=== PATIENT | female | born 1990 | race Caucasian/White ===

== ENCOUNTER → 2016-11-21 21:00 | Emergency (ER) | payer BC ==
[~2016-11-21 21:00] MED LIST: Albuterol/Ipratropium NEB.SOL* Albuterol 2.5 MG/Ipratropium 0.5 MG 3 ML INH ONE; predniSONE TAB* 20 MG PO ONE
[2016-11-21 21:10] VITALS: BP 111/77
--- NOTE | 2016-11-21 22:46 | UC ---
Respiratory Complaint HPI - HPI Summary HPI Summary: Pt presents stating feels wheezing and tightness when takes deep breath x 4 days. pt using ventolin with mild temp relief. pt with dry, nonproductive cough no fevers, chills. no head congestion, sore throat. no fever, chills rash. no hare, vision change + sick contact. pt with h./o asthma - no hospitalization, no intubations. does not recall last prednisone. pt is on flovent pt's medications reviewed this visit - History of Current Complaint Chief Complaint: UCRespiratory Stated Complaint: ASTHMA Time Seen by Provider: 11/21/16 22:32 Hx Obtained From: Patient Hx Last Menstrual Period: 10/31/16 ?: No Character: Cough: Nonproductive Alleviating Factors: Bronchodilator - Allergies/Home Medications Allergies/Adverse Reactions: Allergies Allergy/AdvReac Type Severity Reaction Status Date / Time Ibuprofen AdvReac Nausea Verified 11/21/16 21:10 Home Medications: Home Medications Albuterol HFA INHALER* [Ventolin HFA Inhaler*] 2 puff INH Q4H PRN 11/21/16 [ History Confirmed 11/21/16] Fluticasone DISKUS 100 MCG(NF) [Flovent Diskus 100 MCG(NF)] 1 puff INH DAILY 11/28 [History Confirmed 11/21/16] Norethindrone Acet & Eth Estra [Loestrin 1.5/30-21 1.5-30 mg-Mcg] 1 tab PO DAILY 11/21/16 [History Confirmed 11/21/16] PMH/Surg Hx/FS Hx/Imm Hx Previously Healthy: Yes Respiratory History: Asthma - Surgical History Surgical History: Yes Surgery Procedure, Year, and Place: right knee arthroplasty - Family History Known Family History: Positive: Cardiac Disease - Social History Occupation: Student - OT student Alcohol Use: Rare Substance Use Type: None Smoking Status (MU): Never Smoked Tobacco - Immunization History Most Recent Influenza Vaccination: no 2017 Review of Systems Constitutional: Negative Skin: Negative Eyes: Negative ENT: Negative Respiratory: Cough, Other - wheeze Cardiovascular: Negative Gastrointestinal: Negative Musculoskeletal: Negative Neurological: Negative All Other Systems Reviewed And Are Negative: Yes Physical Exam Triage Information Reviewed: Yes Appearance: Well-Appearing, No Pain Distress Vital Signs: Initial Vital Signs Temp 98.7 F 11/21/16 21:05 Pulse 71 11/21/16 21:05 Resp 20 11/21/16 21:05 BP 111/77 11/21/16 21:05 Pulse Ox 98 11/21/16 21:05 Eye Exam: Normal Eyes: Positive: Conjunctiva Clear ENT Exam: Normal ENT: Positive: Normal ENT inspection, Hearing grossly normal, Pharynx normal Dental Exam: Normal Neck exam: Normal Neck: Positive: Supple, Nontender Respiratory: Positive: No respiratory distress, No accessory muscle use, Wheezing, Other: - speaking full, easy sentences pt with end expiratory wheezes diffusely no accesory muscle use + BS throughout. Negative: Respiratory distress Cardiovascular Exam: Normal Abdominal Exam: Normal Bowel Sounds: Positive: Present Musculoskeletal Exam: Normal Neurological Exam: Normal Psychological Exam: Normal Skin Exam: Normal UC Diagnostic Evaluation - Laboratory O2 Sat by Pulse Oximetry: 98 Re-Evaluation - Re-Evaluation First Eval Change: Improved - pt reports feeling much improved following neb will rx pred ventolin Q4h - pt states has enought at home no abx a this time return precautions discussed- pt in agreement with plan Respiratory Course/Dx - Course Course Of Treatment: Pt reports non productive cough, wheeze and chest fullness. pt with h.o asthma. Will give duoneb, prednisone and reassess - Differential Dx/Diagnosis Provider Diagnoses: asthma Discharge - Discharge Plan Condition: Stable Disposition: HOME Prescriptions: predniSONE TAB* [Deltasone TAB*] 50 mg PO DAILY #4 tab Patient Education Materials: Asthma (ED) Referrals: Carola Sawant MD [Primary Care Provider] - Additional Instructions: - Stay well hydrated. Drink plenty of non-alcoholic, non-caffinated beverages - Take prednisone, once daily, as prescribed - use your ventolin, 2 puffs, every 4 hours today and tomorrow, then every 4 hours as needed - Okay to use your flovent daily - contact your doctor to schedule a follow-up appointment. Contact your doctor or return with questions or concerns
== END | disposition home or self-care (01) ==
LOC: UCCORT 21:00
DX: J45.909 Unspecified asthma, uncomplicated (principal); Z88.6 Allergy status to analgesic agent
CPT/HCPCS: 99212; A9270-GY; G0463; J7512

== ENCOUNTER 2017-02-28 15:38 | Emergency (ER) | payer BC ==
--- NOTE | 2017-02-28 16:36 | UC ---
Respiratory Complaint HPI - HPI Summary HPI Summary: pt c/o "dry cough" X 1 week. Pt has history of asthma and states she has had night sweats and chills and feeling "hot and cold" Also, c/o rib/chest pain with cough. - History of Current Complaint Chief Complaint: UCRespiratory Stated Complaint: COUGH PAIN IN RIB AREA Time Seen by Provider: 02/28/17 16:06 Hx Obtained From: Patient Hx Last Menstrual Period: 02/08/17 ?: No Onset/Duration: Sudden Onset, Lasting Days, Still Present Severity Initially: Mild Severity Currently: Mild Character: Cough: Nonproductive Alleviating Factors: Nothing Associated Signs And Symptoms: Positive: Chills, Wheezing, URI, Nasal Congestion - Risk Factors Pulmonary Embolism Risk Factors: Oral Contraceptives - Allergies/Home Medications Allergies/Adverse Reactions: Allergies Allergy/AdvReac Type Severity Reaction Status Date / Time Ibuprofen AdvReac Nausea Verified 02/28/17 16:11 PMH/Surg Hx/FS Hx/Imm Hx Previously Healthy: Yes - Surgical History Surgical History: Yes Surgery Procedure, Year, and Place: right knee arthroplasty - Family History Known Family History: Positive: Cardiac Disease - Social History Occupation: Employed Full-time Lives: With Family Alcohol Use: None Substance Use Type: None Smoking Status (MU): Never Smoked Tobacco Have You Smoked in the Last Year: No - Immunization History Most Recent Influenza Vaccination: no 2017 Review of Systems Constitutional: Chills, Fatigue Skin: Negative Eyes: Negative ENT: Sore Throat, Sinus Congestion Respiratory: Cough Cardiovascular: Negative Gastrointestinal: Negative Genitourinary: Negative Motor: Negative Neurovascular: Negative Musculoskeletal: Myalgia Neurological: Negative Psychological: Negative Is Patient Immunocompromised?: No All Other Systems Reviewed And Are Negative: Yes Physical Exam Triage Information Reviewed: Yes Appearance: Well-Appearing Vital Signs: Initial Vital Signs Temp 99.2 F 02/28/17 16:01 Pulse 64 02/28/17 16:01 Resp 18 02/28/17 16:01 BP 112/70 02/28/17 16:01 Pulse Ox 100 02/28/17 16:01 Vital Signs Reviewed: Yes Eye Exam: Normal ENT Exam: Normal Dental Exam: Normal Neck exam: Normal Respiratory Exam: Other Respiratory: Positive: Wheezing Cardiovascular Exam: Normal Musculoskeletal Exam: Normal Neurological Exam: Normal Psychological Exam: Normal Skin Exam: Normal UC Diagnostic Evaluation - Laboratory O2 Sat by Pulse Oximetry: 100 Respiratory Course/Dx - Course Course Of Treatment: IMPRESSION: No radiographic evidence of acute cardiopulmonary disease - Differential Dx/Diagnosis Differential Diagnosis/HQI/PQRI: Bronchitis, Influenza, Pulmonary Embolism Provider Diagnoses: reactive airway Discharge - Discharge Plan Condition: Stable Disposition: HOME Prescriptions: Benzonatate CAP* [Tessalon 100 MG CAP*] 100 mg PO Q8H PRN #21 cap PRN Reason: Cough predniSONE TAB* [Deltasone TAB*] 30 mg PO DAILY #12 tab Patient Education Materials: Reactive Airways Disease (ED) Referrals: Carola Sawant MD [Primary Care Provider] - If Needed Additional Instructions: Please follow up with your PCP or return to clinic as needed. Please us your albuterol inhaler as directed.
--- NOTE | 2017-02-28 17:55 | RAD ---
INDICATION: Cough and shortness of breath in a patient with a history of asthma COMPARISON: None TECHNIQUE: PA and lateral views of the chest were obtained. FINDINGS: The heart and mediastinum are normal in size and contour. The lungs are grossly clear. There is no evidence of large pleural effusion. Visualized bones are normal for the patient's age. There is no radiographic evidence of free air beneath the diaphragm IMPRESSION: No radiographic evidence of acute cardiopulmonary disease.
[2017-02-28 18:04] VITALS: BP 106/71
== END 2017-02-28 18:04 | disposition home or self-care (01) ==
LOC: UCCORT 15:38
DX: J45.909 Unspecified asthma, uncomplicated (principal); R05 Cough; R09.81 Nasal congestion; R53.83 Other fatigue; J02.9 Acute pharyngitis, unspecified; M79.1 Myalgia; Z88.6 Allergy status to analgesic agent
CPT/HCPCS: 71046; 99212; G0463